=== PATIENT | female | born 1995 | race African-American/Black ===

== ENCOUNTER 2016-08-11 13:16 | Emergency (ER) | payer SELFPAY ==
[~2016-08-11] VITALS: Ht 152.4 cm; Wt 91.0 kg
[2016-08-11 18:00] LABS: EOSINOPHIL (%) 1.6 % (0-5); EOSINOPHIL COUNT 0.1 K/uL (0-0.3); HEMATOCRIT 41.4 % (36.0-46.0); IMMATURE GRANULOCYTE (%) 0.1 % (0.0-0.7); IMMATURE GRANULOCYTE COUNT 0.1 K/uL; LYMPHOCYTE COUNT 2.8 K/uL (1.0-2.8); MCH 27.9 PG (29.0-34.0); MCHC 34.5 G/DL (30.0-36.0); MCV 80.9 FL (83-99); MEAN PLAT.VOLUME 9.7 uM^3 (9.5-12.4); MONOCYTE (%) 8.7 % (3-12); MONOCYTE COUNT 0.7 K/uL (0-0.8); NEUTROPHIL (%) 51.7 % (45-76); NEUTROPHIL COUNT 3.9 K/uL (1.8-6.4); PLATELET COUNT 263 K/uL (156-360); RBC DIS.WIDTH-CV 14.2 % (11.8-14.6); RBC DIS.WIDTH-SD 41.6 % (39-53); RED BLOOD COUNT 5.12 M/uL (3.80-5.20); WHITE BLOOD COUNT 7.6 K/uL (4.1-10.2)
[2016-08-11 18:01] LABS: ADD MIUA? NO; BILIRUBIN NEGATIVE; BLOOD NEGATIVE; COLOR YELLOW ((YELLOW)); GLUCOSE (STRIP) NEGATIVE; KETONES NEGATIVE; LEUKOCYTES NEGATIVE; NITRITE NEGATIVE; PROTEIN (STRIP) NEGATIVE; SPECIFIC GRAVITY 1.027 (1.000-1.030); UCUL ADDED? NO; UROBILINOGEN 0.2 MG/DL (0.2-1.0)
[2016-08-11 18:08] LABS: CHLORIDE 107 mEq/L (99-109); POTASSIUM 3.9 mEq/L (3.7-5.4); SODIUM 139 mEq/L (136-147)
[2016-08-11 18:10] LABS: GLUCOSE 93 mg/dL (70-99)
[2016-08-11 18:11] LABS: ANION GAP 12 MEQ/L (2-14)
[2016-08-11 18:14] LABS: GFR ESTIMATE (CALCULATED) > 59 mL/min/
[2016-08-11 18:15] LABS: UREA NITROGEN (BUN) 16 mg/dL (9-23)
[2016-08-11] MEDS ORDERED: FLAGYL500 MG PO (18:20)
[2016-08-11 18:22] LABS: QUANTITATIVE HCG < 4.0 MIU/ML
[2016-08-11 18:58] VITALS: BP 99/49
[2016-08-11 19:14] LABS: CANDIDA DNA PROBE POSITIVE; GARDNERELLA DNA PROBE NEGATIVE; INTERNAL CONTROL VALID? YES
[2016-08-13 13:20] LABS: CHLAMYDIA TRACHOMATIS NEGATIVE; NEISSERIA GONORRHOEAE NEGATIVE
== END 2016-08-11 18:59 | disposition home or self-care (01) ==
LOC: EME 13:16
PROVIDERS: Physician Assistant
DX: B37.3 Candidiasis of vulva and vagina (principal); F17.200 Nicotine dependence, unspecified, uncomplicated; F12.10 Cannabis abuse, uncomplicated
CPT/HCPCS: 80048; 81003; 84702; 85025; 87210; 87480; 87491; 87510; 87591; 87660; 99281; 99284; J0696

== ENCOUNTER 2016-11-07 13:15 | Emergency (ER) | payer OTHER, BC ==
[~2016-11-07] VITALS: Ht 154.9 cm; Wt 89.3 kg
[~2016-11-07 13:15] MED LIST: FLAGYL500 MG PO
[2016-11-07 13:26] VITALS: BP 114/86
[2016-11-07] MEDS ORDERED: NAPROSYN500 MG PO (13:55)
[2016-11-07] MEDS ORDERED: FLEXERIL10 MG PO (13:55)
== END 2016-11-07 14:14 | disposition home or self-care (01) ==
LOC: EME 13:15
DX: S16.1XXA Strain of muscle, fascia and tendon at neck level, initial encounter (principal); S80.01XA Contusion of right knee, initial encounter; S80.02XA Contusion of left knee, initial encounter; V49.40XA Driver injured in collision with unspecified motor vehicles in traffic accident, initial encounter; Y92.810 Car as the place of occurrence of the external cause
CPT/HCPCS: 99281; 99283